=== PATIENT | female | born 1995 ===

== ENCOUNTER 2017-12-17 14:17 | Emergency (ER) | payer OTHER ==
[2017-12-17 14:26] VITALS: BP 115/71; PULSE 63; RESP 18; TEMP 98.4; O2SAT 100
--- NOTE | 2017-12-17 14:42 | C.PDOC ---
History Of Present Illness 22 year old female presents to the ED complaining of redness, swelling, and irritation to her left pubic area for 3 days. Denies any fever, chills, or drainage from site. She did recently wax the area a few days ago. Time Seen by Provider: 12/17/17 14:30 Chief Complaint (Nursing): Abnormal Skin Integrity History Per: Patient History/Exam Limitations: no limitations Onset/Duration Of Symptoms: Days Current Symptoms Are (Timing): Still Present Past Medical History Reviewed: Historical Data, Nursing Documentation, Vital Signs Vital Signs: Last Vital Signs Temp 98.4 F 12/17/17 14:24 Pulse 63 12/17/17 14:24 Resp 18 12/17/17 14:24 BP 115/71 12/17/17 14:24 Pulse Ox 100 12/17/17 14:42 - Medical History PMH: Hypothyroidism Surgical History: Appendectomy Other Surgeries: Thyroidectomy Family History: States: No Known Family Hx - Social History Hx Tobacco Use: No Hx Alcohol Use: No Hx Substance Use: No - Immunization History Hx Tetanus Toxoid Vaccination: Yes (2011) Hx Influenza Vaccination: No Hx Pneumococcal Vaccination: No Review Of Systems Constitutional: Negative for: Fever, Chills Gastrointestinal: Negative for: Nausea, Abdominal Pain Genitourinary: Negative for: Dysuria, Frequency, Incontinence, Vaginal Discharge , Vaginal Bleeding Skin: Positive for: Other (Redness, swelling, and irritation to left pubic area) Physical Exam - Physical Exam Appears: Well, Non-toxic, No Acute Distress Skin: Warm, Other (Papules, pustules, and scabs noted to entire suprapubic area ; Left side with indurated pustule and 3cm of surrounding erythema and tenderness, no fluctuance; no inguinal adenopathy) Eye(s): bilateral: Normal Inspection Oral Mucosa: Moist Chest: Symmetrical Respiratory: Other (Speaking in full sentences, no respiratory distress) Extremity: Bilateral: Atraumatic, Normal ROM Neurological/Psych: Oriented x3, Normal Speech ED Course And Treatment O2 Sat by Pulse Oximetry: 100 (RA) Pulse Ox Interpretation: Normal Medical Decision Making Medical Decision Making: Impression: Folliculitis, possible early abscess Plan: --Keflex 500 mg PO No I&D indicated at this time. Patient remained afebrile alert and oriented with stable vital signs during ER evaluation. Patient discharged home with antibiotics. Instructed to apply warm compresses and have wound checked in 2-3 days. Disposition Counseled Patient/Family Regarding: Diagnosis, Need For Followup, Rx Given - Disposition Referrals: Angel Traore MD [Staff Provider] - Disposition: HOME/ ROUTINE Disposition Time: 14:40 Condition: STABLE Additional Instructions: TAKE ANTIBIOTIC TWICE DAILY AND APPLY CREAM TO AREA CAN APPLY WARM COMPRESS TO AREA OR TAKE SITZ BATH FOLLOW UP IN 2-3 DAYS FOR WOUND CHECK Prescriptions: Cephalexin [cephalexin] 500 mg PO Q12 #14 cap Mupirocin 2% Cream [Bactroban Cream] 30 applic EXT BID #1 tube Instructions: Folliculitis (DC) Forms: [employer] ([place]) - POA Present On Arrival: None - Clinical Impression Clinical Impression: Folliculitis - PA / SHORTHAND REPORTER / Resident Statement MD/DO has reviewed & agrees with the documentation as recorded. - Scribe Statement The provider has reviewed the documentation as recorded by the Scribe (Taylor Rodarte) All medical record entries made by the Scribe were at my direction and personally dictated by me. I have reviewed the chart and agree that the record accurately reflects my personal performance of the history, physical exam, medical decision making, and the department course for this patient. I have also personally directed, reviewed, and agree with the discharge instructions and disposition.
== END 2017-12-17 15:21 | disposition home or self-care (01) ==
LOC: C.ER 14:17
DX: L73.9 Follicular disorder, unspecified (principal); E03.9 Hypothyroidism, unspecified